=== PATIENT | female | born 2005 | race African-American/Black ===

== ENCOUNTER 2023-08-13 10:05 | Emergency (ER) | payer OTHER ==
[~2023-08-13] VITALS: Ht 162.6 cm; Wt 70.9 kg
[2023-08-13] MEDS ORDERED: ACETAMINOPHEN 500 MG TAB PO ONE (13:25)
[2023-08-13] MEDS ORDERED: LIDOCAINE 5% (LIDODERM) PATCH TD ONE (13:25)
[2023-08-13] MEDS ORDERED: ANEC4CRE3 TOP (13:26)
[2023-08-13] MEDS ORDERED: METH-1165 PO (13:26)
[2023-08-13 13:44] VITALS: BP 116/74; TEMP 98; O2SAT 98
== END 2023-08-13 13:45 | disposition home or self-care (01) ==
LOC: M ED 10:05
DX: S00.03XA Contusion of scalp, initial encounter (principal); S30.810A Abrasion of lower back and pelvis, initial encounter; S06.0XAA Concussion with loss of consciousness status unknown, initial encounter; W10.8XXA Fall (on) (from) other stairs and steps, initial encounter; Y92.9 Unspecified place or not applicable; Y93.9 Activity, unspecified; Y99.9 Unspecified external cause status

== ENCOUNTER 2024-04-08 11:06 | Emergency (ER) | payer OTHER ==
[~2024-04-08] VITALS: Ht 162.6 cm; Wt 73.9 kg
[~2024-04-08 11:06] MED LIST: ANEC4CRE3 TOP; METH-1165 PO
[2024-04-08] MEDS ORDERED: ONDANSETRON 4MG 2ML VIAL IV ONE (12:20)
[2024-04-08] MEDS: ONDANSETRON 4MG ORAL DISINTEGRATING TAB PO ONE (12:25)
[2024-04-08] MEDS: ACETAMINOPHEN TAB 650MG DOSE (2X325MG) PO ONE (12:41)
[2024-04-08] MEDS ORDERED: ONDA-282 PO (12:59)
[2024-04-08 13:10] VITALS: BP 121/65; TEMP 98; O2SAT 100
== END 2024-04-08 13:11 | disposition home or self-care (01) ==
LOC: M ED 11:06
DX: R11.2 Nausea with vomiting, unspecified (principal); R51.9 Headache, unspecified; F10.10 Alcohol abuse, uncomplicated; Z79.899 Other long term (current) drug therapy

== ENCOUNTER 2024-12-22 12:10 | Emergency (ER) | payer OTHER ==
[~2024-12-22] VITALS: Ht 162.6 cm; Wt 72.4 kg
[~2024-12-22 12:10] MED LIST changes: +ONDA-282 PO
[2024-12-22 12:21] VITALS: TEMP 98.2
[2024-12-22 12:57] LABS: BASO % 0.3 % (0.0-1.0); EOS # 0.1 10^3/uL (0.0-0.5); EOS % 1.8 % (0.0-3.0); HEMATOCRIT 38.1 % (36.0-47.0); HEMOGLOBIN 12.1 g/dl (12.0-15.5); LYMPH # 1.9 10^3/uL (1.5-5.0); LYMPH % 28.5 % (24.0-44.0); MEAN CORPUSCULAR HEMOGLOBIN 26.7 pg (27.0-33.0); MEAN CORPUSCULAR HGB CONC 31.8 g/dl (32.0-36.5); MEAN CORPUSCULAR VOLUME 83.9 fl (80.0-96.0); MONO # 0.6 10^3/uL (0.0-0.8); MONO % 8.9 % (2.0-8.0); NEUTROPHILS # 3.9 10^3/uL (1.5-8.5); NEUTROPHILS % 60.3 % (36.0-66.0); PLATELET COUNT, AUTOMATED 391 10^3/uL (150-450); RED BLOOD COUNT 4.54 10^6/uL (4.00-5.40); WHITE BLOOD COUNT 6.5 10^3/uL (4.0-10.0)
[2024-12-22 13:13] LABS: ALBUMIN 4.2 G/DL (3.2-5.2); ALKALINE PHOSPHATASE 66 U/L (35-104); ALT/SGPT 11 U/L (7.0-40); AST/SGOT 11 U/L (<34); BILIRUBIN,DIRECT 0.1 MG/DL (<0.4); BILIRUBIN,TOTAL 0.4 MG/DL (0.3-1.2); BLOOD UREA NITROGEN 9 MG/DL (9-23); CALCIUM LEVEL 9.3 MG/DL (8.5-10.1); CARBON DIOXIDE LEVEL 29 MMOL/L (20-31); CHLORIDE LEVEL 104 MMOL/L (98-107); CREATININE FOR GFR 0.69 MG/DL (0.55-1.30); GLOMERULAR FILTRATION RATE > 90.0 (>60); GLUCOSE, FASTING 89 MG/DL (60-100); POTASSIUM SERUM 3.8 MMOL/L (3.5-5.1); SODIUM LEVEL 141 MMOL/L (136-145); TOTAL PROTEIN 7.7 G/DL (5.7-8.2)
[2024-12-22 13:15] LABS: HCG, SERUM QUALITATIVE NEGATIVE (NEGATIVE)
[2024-12-22] MEDS ORDERED: ONDA-282 PO (14:56)
[2024-12-22 15:09] VITALS: BP 124/80; O2SAT 100
== END 2024-12-22 15:10 | disposition home or self-care (01) ==
LOC: M ED 12:10
DX: R11.2 Nausea with vomiting, unspecified (principal); R19.7 Diarrhea, unspecified; Z79.899 Other long term (current) drug therapy